=== PATIENT | male | born 1965 | race Caucasian/White ===

== ENCOUNTER 2017-07-03 15:58 | Emergency (ER) | payer BC ==
[~2017-07-03] VITALS: Ht 175.3 cm; Wt 93.4 kg
[~2017-07-03 15:58] MED LIST: AMBIEN5 M1 PO; AUGMENTIN875 MG PO; BENICAR20 MG PO; BENICAR5 MG PO; CRESTOR10 MG PO; CYMBALTA30 MG PO; RESTORIL30 MG PO; TRAMADOL-APAP1 EACH PO; TRILIPIX45 MG PO; VICODIN,LORT1 TABLET PO
[2017-07-03 18:36] VITALS: BP 119/91
[2017-07-05] MEDS ORDERED: ALPRAZOLAM0.5 MG PO (19:34)
[2017-07-05] MEDS ORDERED: BUPROPION XL300 MG PO (19:34)
[2017-07-05] MEDS ORDERED: BENZONATATE200 MG PO (19:35)
[2017-07-05] MEDS ORDERED: PROVENTIL HFA6.7 GM IH (19:36)
[2017-07-05] MEDS ORDERED: FENOFIBRATE160 M1 PO (19:36)
[2017-07-05] MEDS ORDERED: AMBIEN CR12.5 MG PO (19:37)
[2017-07-05] MEDS ORDERED: LOSARTAN POTASS50 MG PO (19:37)
[2017-07-05] MEDS ORDERED: LOSARTAN POTASS25 MG PO (19:37)
[2017-07-05] MEDS ORDERED: CYCLOBENZAPRINE10 MG PO (19:38)
[2017-07-05] MEDS ORDERED: MELOXICAM15 MG PO (19:38)
[2017-07-05] MEDS ORDERED: OMEPRAZOLE40 M1 PO (19:38)
[2017-07-05] MEDS ORDERED: FLONASE ALLERG9.9 ML BOTH NARES (19:39)
[2017-07-05] MEDS ORDERED: LORATADINE10 M3 PO (19:39)
[2017-07-05] MEDS ORDERED: OMEGA III EPA1000 MG PO (19:40)
[2017-07-05] MEDS ORDERED: SILDENAFIL CITR50 MG PO (19:40)
[2017-07-05] MEDS ORDERED: FLUOXETINE HCL20 MG PO (19:41)
[2017-07-05] MEDS ORDERED: LIDOPATCH1 EACH TD (19:41)
== END 2017-07-03 18:36 | disposition home or self-care (01) ==
LOC: EME 15:58
DX: R78.9 Finding of unspecified substance, not normally found in blood (principal); E78.5 Hyperlipidemia, unspecified; I10 Essential (primary) hypertension; F41.9 Anxiety disorder, unspecified
CPT/HCPCS: 87040; 99281; 99284

== ENCOUNTER 2017-07-15 20:39 | Inpatient (IN) | payer BC ==
[~2017-07-15] VITALS: Ht 177.8 cm; Wt 94.6 kg
[~2017-07-15 20:39] MED LIST changes: +ALPRAZOLAM0.5 MG PO; +AMBIEN CR12.5 MG PO; +BENZONATATE200 MG PO; +BUPROPION XL300 MG PO; +CYCLOBENZAPRINE10 MG PO; +FENOFIBRATE160 M1 PO; +FLONASE ALLERG9.9 ML BOTH NARES; +FLUOXETINE HCL20 MG PO; +LIDOPATCH1 EACH TD; +LORATADINE10 M3 PO; +LOSARTAN POTASS25 MG PO; +LOSARTAN POTASS50 MG PO; +MELOXICAM15 MG PO; +OMEGA III EPA1000 MG PO; +OMEPRAZOLE40 M1 PO; +PROAIR HFA8.5 GM IH; +SILDENAFIL CITR50 MG PO; +VICODIN HP 10-1 EACH PO; -VICODIN,LORT1 TABLET PO
[2017-07-15 21:41] LABS: HEMATOCRIT 38.1 % (38.0-50.0); HEMOGLOBIN 13.1 G/DL (12.5-16.6); MCH 30.6 PG (29.0-34.0); MCHC 34.4 G/DL (30.0-36.0); PLATELET COUNT 331 K/uL (156-360); RBC DIS.WIDTH-CV 12.2 % (11.8-14.6); RBC DIS.WIDTH-SD 39.1 % (39-53); RED BLOOD COUNT 4.28 M/uL (4.00-5.50); WHITE BLOOD COUNT 18.8 K/uL (4.1-10.2)
[2017-07-15 21:51] LABS: CHLORIDE 107 mEq/L (99-109); POTASSIUM 4.2 mEq/L (3.7-5.4); SODIUM 140 mEq/L (136-147)
[2017-07-15 21:53] LABS: GLUCOSE 95 mg/dL (70-99)
[2017-07-15 21:57] LABS: CREATININE 1.3 mg/dL (0.6-1.3); GFR ESTIMATE (CALCULATED) > 59 mL/min/ (58.99-99999)
[2017-07-15 21:58] LABS: UREA NITROGEN (BUN) 19 mg/dL (9-23)
[2017-07-15 22:05] LABS: TROP-I INTERPRETATION NEGATIVE; TROPONIN-I < 0.01 ng/mL (0.0-0.30)
[2017-07-15 22:32] LABS: APPEARANCE CLEAR ((CLEAR)); BILIRUBIN NEGATIVE; BLOOD NEGATIVE; COLOR YELLOW ((YELLOW)); GLUCOSE (STRIP) NEGATIVE; KETONES NEGATIVE; LEUKOCYTES NEGATIVE; NITRITE NEGATIVE; PROTEIN (STRIP) NEGATIVE; SPECIFIC GRAVITY 1.015 (1.000-1.030); UCUL ADDED? NO; UROBILINOGEN 0.2 MG/DL (0.2-1.0)
[2017-07-15] MEDS ORDERED: HYDROCODON-ACE1 EA10 PO (23:54)
[2017-07-15] MEDS ORDERED: ANDROGEL75 GM TD (23:54)
[2017-07-16 04:44] LABS: C-REACTIVE PROTEIN 12.3 MG/L (0-10)
[2017-07-16 06:35] LABS: BASOPHIL (%) 0.2 % (0-1); EOSINOPHIL (%) 0.3 % (0-5); HEMATOCRIT 33.5 % (38.0-50.0); HEMOGLOBIN 11.2 G/DL (12.5-16.6); IMMATURE GRANULOCYTE (%) 0.5 % (0.0-0.7); LYMPHOCYTE (%) 15.3 % (15-42); LYMPHOCYTE COUNT 2.1 K/uL (1.0-2.8); MCH 30.5 PG (29.0-34.0); MCHC 33.4 G/DL (30.0-36.0); MCV 91.3 FL (86-99); MONOCYTE (%) 3.6 % (3-12); MONOCYTE COUNT 0.5 K/uL (0-0.8); NEUTROPHIL (%) 80.1 % (45-76); NEUTROPHIL COUNT 10.8 K/uL (1.8-6.4); PLATELET COUNT 273 K/uL (156-360); RBC DIS.WIDTH-CV 12.6 % (11.8-14.6); RBC DIS.WIDTH-SD 41.5 % (39-53); RED BLOOD COUNT 3.67 M/uL (4.00-5.50); WHITE BLOOD COUNT 13.5 K/uL (4.1-10.2)
[2017-07-16 06:47] LABS: ALBUMIN 3.5 g/dL (3.2-4.8); CHLORIDE 109 mEq/L (99-109); POTASSIUM 3.8 mEq/L (3.7-5.4); SODIUM 142 mEq/L (136-147)
[2017-07-16 06:49] LABS: GLUCOSE 105 mg/dL (70-99)
[2017-07-16 06:50] LABS: TOTAL PROTEIN 5.9 g/dL (6.4-8.3)
[2017-07-16 06:51] LABS: TOTAL BILIRUBIN 0.2 mg/dL (0.0-1.0)
[2017-07-16 06:53] LABS: ALKALINE PHOSPHATASE 27 IU/L (3-129); CREATININE 1.3 mg/dL (0.6-1.3); GFR ESTIMATE (CALCULATED) > 59 mL/min/ (58.99-99999)
[2017-07-16 06:54] LABS: UREA NITROGEN (BUN) 16 mg/dL (9-23)
[2017-07-16 06:55] LABS: AST (GOT) 15 IU/L (2-34)
[2017-07-16 06:56] LABS: ALT (GPT) 18 IU/L (3-49)
[2017-07-16 07:37] LABS: ERTH.SED.RATE 13 MM/HR (0-20)
[2017-07-16 17:31] VITALS: BP 121/88
[2017-07-16 20:00] VITALS: BP 124/72
[2017-07-16 23:30] VITALS: BP 108/57
[2017-07-17 04:00] VITALS: BP 109/62
[2017-07-17 07:01] LABS: CHLORIDE 110 MEQ/L (99-109); CREATININE 1.2 MG/DL (0.6-1.3); GFR ESTIMATE (CALCULATED) > 59 mL/min/ (58.99-99999); GLUCOSE 90 mg/dL (70-99); SODIUM 143 MEQ/L (136-147); UREA NITROGEN (BUN) 13 mg/dL (9-23)
[2017-07-17 07:08] LABS: BASOPHIL (%) 0.6 % (0-1); EOSINOPHIL (%) 3.7 % (0-5); EOSINOPHIL COUNT 0.2 K/uL (0-0.3); HEMATOCRIT 34.6 % (38.0-50.0); HEMOGLOBIN 11.6 G/DL (12.5-16.6); IMMATURE GRANULOCYTE (%) 0.2 % (0.0-0.7); LYMPHOCYTE (%) 33.9 % (15-42); LYMPHOCYTE COUNT 1.8 K/uL (1.0-2.8); MCH 30.7 PG (29.0-34.0); MCHC 33.5 G/DL (30.0-36.0); MCV 91.5 FL (86-99); MONOCYTE (%) 5.7 % (3-12); MONOCYTE COUNT 0.3 K/uL (0-0.8); NEUTROPHIL (%) 55.9 % (45-76); PLATELET COUNT 278 K/uL (156-360); RBC DIS.WIDTH-CV 12.6 % (11.8-14.6); RBC DIS.WIDTH-SD 41.5 % (39-53); RED BLOOD COUNT 3.78 M/uL (4.00-5.50); WHITE BLOOD COUNT 5.4 K/uL (4.1-10.2)
[2017-07-17 08:07] VITALS: BP 154/79
[2017-07-17 11:37] VITALS: BP 138/87
[2017-07-17 15:35] VITALS: BP 134/75
[2017-07-17 20:29] VITALS: BP 131/78
[2017-07-18 00:36] VITALS: BP 114/69
[2017-07-18 04:27] VITALS: BP 121/71
[2017-07-18 07:12] LABS: HEMATOCRIT 36.6 % (38.0-50.0); HEMOGLOBIN 12.1 G/DL (12.5-16.6); MCH 29.8 PG (29.0-34.0); MCHC 33.1 G/DL (30.0-36.0); MCV 90.1 FL (86-99); PLATELET COUNT 306 K/uL (156-360); RBC DIS.WIDTH-CV 12.3 % (11.8-14.6); RBC DIS.WIDTH-SD 40.4 % (39-53); RED BLOOD COUNT 4.06 M/uL (4.00-5.50); WHITE BLOOD COUNT 5.8 K/uL (4.1-10.2)
[2017-07-18 07:38] VITALS: BP 127/73
[2017-07-18 10:55] LABS: HIV-1/2 AB/AG COMBO Nonreactive
[2017-07-18 11:31] LABS: C DIFF TOXIN NEGATIVE (NEGATIVE)
[2017-07-18 16:00] VITALS: BP 135/72
[2017-07-19 00:26] VITALS: BP 129/76
[2017-07-19 06:39] LABS: HEMATOCRIT 39.6 % (38.0-50.0); HEMOGLOBIN 13.1 G/DL (12.5-16.6); MCH 29.8 PG (29.0-34.0); MCHC 33.1 G/DL (30.0-36.0); PLATELET COUNT 337 K/uL (156-360); RBC DIS.WIDTH-CV 12.3 % (11.8-14.6); RBC DIS.WIDTH-SD 40.5 % (39-53); WHITE BLOOD COUNT 7.3 K/uL (4.1-10.2)
[2017-07-19 08:29] VITALS: BP 127/77
[2017-07-19 15:49] VITALS: BP 130/87
[2017-07-19 23:44] VITALS: BP 111/65
[2017-07-20 06:43] LABS: BASOPHIL (%) 0.5 % (0-1); EOSINOPHIL (%) 2.5 % (0-5); EOSINOPHIL COUNT 0.2 K/uL (0-0.3); HEMATOCRIT 41.9 % (38.0-50.0); HEMOGLOBIN 14.1 G/DL (12.5-16.6); IMMATURE GRANULOCYTE (%) 0.5 % (0.0-0.7); LYMPHOCYTE (%) 32.7 % (15-42); LYMPHOCYTE COUNT 2.5 K/uL (1.0-2.8); MCH 30.3 PG (29.0-34.0); MCHC 33.7 G/DL (30.0-36.0); MCV 89.9 FL (86-99); MONOCYTE (%) 8.3 % (3-12); MONOCYTE COUNT 0.6 K/uL (0-0.8); NEUTROPHIL (%) 55.5 % (45-76); NEUTROPHIL COUNT 4.2 K/uL (1.8-6.4); PLATELET COUNT 347 K/uL (156-360); RBC DIS.WIDTH-CV 12.5 % (11.8-14.6); RBC DIS.WIDTH-SD 40.9 % (39-53); RED BLOOD COUNT 4.66 M/uL (4.00-5.50); WHITE BLOOD COUNT 7.6 K/uL (4.1-10.2)
[2017-07-20 08:21] VITALS: BP 137/82
== END 2017-07-20 12:50 | disposition home or self-care (01) | DRG 872 ==
LOC: EME → EDBD 20:39 → EME 20:39 → EDOF 07-16 01:47 → ENRESERV 07-16 01:49 → 5SOUTH 07-16 16:43 → ENPENDDIS 07-20 11:58 → 5SOUTH 07-20 12:50
PROVIDERS: Emergency Medicine; Internal Medicine; Internal Medicine Infectious Disease; Physician Assistant; Physician Assistant Medical; Student in an Organized Health Care Education/Training Program
DX: A41.9 Sepsis, unspecified organism (principal); I10 Essential (primary) hypertension; F41.9 Anxiety disorder, unspecified; F32.9 Major depressive disorder, single episode, unspecified; K44.9 Diaphragmatic hernia without obstruction or gangrene; G89.29 Other chronic pain; M54.5 Low back pain; M25.571 Pain in right ankle and joints of right foot; M48.061 Spinal stenosis, lumbar region without neurogenic claudication; E78.5 Hyperlipidemia, unspecified; K52.9 Noninfective gastroenteritis and colitis, unspecified; Z87.01 Personal history of pneumonia (recurrent); G47.00 Insomnia, unspecified
CPT/HCPCS: 70551; 71046; 71275; 72158; 73630; 74176; 80048; 80053; 80202; 81003; 82803; 83605; 83615; 83880; 84484; 85025; 85027; 85651; 86140; 87040; 87070; 87086; 87205; 87389; 87449; 87493; 87502; 93005; 93306; 94640; 94799; 99202; 99281; 99285; J0692; J0696; J1644; J3370; J7030; J7040; S0030